=== PATIENT | male | born 1960 | race Caucasian/White ===

== ENCOUNTER 2025-04-30 22:12 | Observation (INO) ==
[2025-04-30 22:47] LABS: HCT - HEMATOCRIT 41.1 % (42.0-52.0); HGB - HEMOGLOBIN 13.5 g/dL (14.0-18.0); MEAN PLATELET VOLUME 9.2 fL (7.4-11.4); NRBC ABSOLUTE COUNT (AUTO) 0.00 x10^3/uL; NUCLEATED RED BLOOD CELLS AUTO 0.0 /100WBC; PLT - PLATELET COUNT 290 10^3/uL (130-450); RED CELL DISTRIBUTION WIDTH 13.2 % (12.0-15.0)
--- NOTE | 2025-04-30 22:47 | XRAY Report ---
PROCEDURE: XR Chest 1V INDICATIONS: Chest Pain TECHNIQUE: One view of the chest was acquired. COMPARISON: None. FINDINGS: Surgical changes and devices: None. Lungs and pleura: No pleural effusions or pneumothorax. No consolidation. Mediastinum: Mediastinal contours appear normal. Heart size is normal. Bones and chest wall: No suspicious bony lesions. Overlying soft tissues appear unremarkable. IMPRESSION: No acute cardiopulmonary process. Reviewed by: Montez Riojas MD on 04/30/2025 10:43 PM [facility] Approved by: Montez Riojas MD on 04/30/2025 10:43 PM PST Station ID: [id number]
[2025-04-30] MEDS: LORazepam 2 MG/ML VIAL IVP STA (22:58)
--- NOTE | 2025-04-30 23:01 | ED Physician Documentation ---
History of Present Illness Stated complaint Stated Complaint: CHEST DISCOMFORT Chief complaint Chief Complaint: General History obtained from History obtained from: Patient and Family History of Present Illness Pain level max: 4 Pain level now: 0 Additonal information Additional information: Patient is a 65-year-old male who presents to the emergency department stating he has had increasing anxiety over the past several weeks. History of same. Does not take any medications for it. History of hypertension. States that he had epigastric/chest pain about an hour prior to arrival that he relates to "gas". States resolved with belching. No change with walking. No fevers or chills. No cough or congestion. Denies any cardiac history. No history of stents or bypasses. Does not smoke. Does drink 1-2 beers nightly. Review of Systems Constitutional Denies: Fever or Chills Respiratory Denies: Cough Gastrointestinal Denies: Nausea or Vomiting Integumentary/Breast Denies: Rash Neurological Denies: Headache or General weakness Meds/Allgy Allergies Allergies Allergy/AdvReac Type Severity Reaction Status Date / Time No Known Drug Allergies Allergy Verified 04/30/25 22:18 [facility] Social History Social History Do you feel safe in your home environment?: Yes History of physical, verbal, emotional, or financial abuse?: No Exam Exam Vital Signs: Vital Signs x48h Temp Pulse Resp BP Pulse Ox 04/30/25 22:22 102 H 20 98 04/30/25 22:18 36.9 C 94 20 206/110 H 98 Constitutional normal general appearance and no apparent distress Eyes PERRL Neck/C-Spine trachea midline Chest inspection of chest normal and palpation of chest normal Respiratory breath sounds equal bilaterally, normal respiratory effort and clear to auscultation bilaterally Cardiovascular normal heart rate noted and regular rhythm noted Gastrointestinal abdomen soft to palpation, nontender to palpation and nondistended Psychiatry mental status grossly normal and oriented x3 Skin skin color normal Results Vitals Vitals: Vital Signs - 24 hr 04/30/25 22:18 04/30/25 22:22 04/30/25 22:24 Temperature 36.9 C Temperature Source Temporal Artery Scan Pulse Rate 94 102 H Respiratory Rate 20 20 Blood Pressure 206/110 H O2 Saturation 98 98 Oxygen Delivery Method Room Air O2 Source Room air Room air Pain Intensity 2 0 Oxygen O2 Source Room air EKG (time done) 2230: EKG releavant findings:: EKG personally interpreted by author of this note. Relevant findings are: Rate: Other (94bpm, sinus rhythm, normal NH interval, narrow QRS, LVH, no STEMI.) Labs Labs: Laboratory Tests 04/30/25 22:42 WBC 9.9 RBC 4.79 Hgb 13.5 L Hct 41.1 L MCV 85.8 MCH 28.2 MCHC 32.8 RDW 13.2 Plt Count 290 MPV 9.2 Neut # (Auto) 6.5 Lymph # (Auto) 2.2 [place] # (Auto) 1.0 Eos # (Auto) 0.1 Baso # (Auto) 0.0 Absolute Nucleated RBC 0.00 Nucleated RBC % 0.0 PD Medical Decision Making ED course Complexity details: reviewed results, re-evaluated patient, considered differential and d/w patient ED course: 65-year-old male with increasing anxiety, atypical chest pain, nonradiating, relieved with belching. No cardiac history. History of hypertension. Given Ativan for anxiety. Awaiting laboratory studies, chest x-ray. Suspect he will need at least 2 troponins. Patient will be signed out to Dr. Kirkland for repeat evaluation after medication and laboratory testing. This document was made in part using voice recognition software. While efforts are made to proofread this document, sound alike and grammatical errors may occur. Discharge Plan Discharge Print Language: French Stand Alone Forms: PCP List
--- NOTE | 2025-04-30 23:05 | ED Physician Documentation ---
ED Addendum Addendum Addendum: Patient was handed off to me at 2300 hrs. on 04-30-[address] Anders Jennings. Patient had an episode of vague left-sided chest discomfort after eating earlier tonight, and was recommended to come into the ER for evaluation by . He does have a history of significant hypertension, and known stable intra- abdominal aneurysm. [place] to [facility] about 4 days ago. He denies previous history of CAD or heart attack. Initial workup completed by Dr. Jennings so far unremarkable, his initial troponin was 18 on the high side of normal. Currently asymptomatic. Patient remained stable in the ER as he awaited second troponin. Second troponin did come back elevated at 24.2 which represented a rise of about 6.1 units on a high-sensitivity scale. I discussed these with the patient at length, and given his heart score roughly 4-5, elected to keep him here for a third troponin. Patient's third troponin came back elevated at 30.8. Throughout his time in the ER time he has been asymptomatic, with no chest pain or nausea. Feels well. We repeated an EKG, which appears similar to previous, with mild ST segment elevation in V1, stigmata of significant hypertension, as well as a few PVCs. I discussed his presentation with hospitalist here at [facility]. I recommended admission for observation and telemetry monitoring, likely echocardiogram tomorrow and establishment of care with cardiology for close follow-up as indicated. Patient was agreeable with this plan. Discharge Plan Discharge Patient Disposition: 68 [facility] DC/Xfer Condition: Stable Clinical Impression: Chest pain, Elevated troponin Interventions: ED Admission Assessment Last Done: 05/01/25 04:49 Vitals documented within 30 minutes of discharge?: Yes
[2025-04-30 23:06] LABS: ALT ALANINE AMINOTRANSFERASE 14.0 IU/L (10-60); AST ASPARTATE AMINOTRANSFERASE 15.0 IU/L (10-42); BUN - BLOOD UREA NITROGEN 15.0 mg/dL (6-20); CARBON DIOXIDE - CO2 28.0 mmol/L (21-32); CREATININE 1.0 mg/dL (0.6-1.3); GFR - MDRD 75.0 (>89)
[2025-04-30 23:09] LABS: TROPONIN I HIGH SENSITIVITY 18.1 ng/L (2.3-19.7)
[2025-05-01] MEDS: ASPIRIN CHEW 81 MG TABLET PO STA (04:40)
[2025-05-01] MEDS ORDERED: ONDANSETRON 4 MG/2 ML VIAL IVP PRN (04:46)
[2025-05-01] MEDS ORDERED: ACETAMINOPHEN 325 MG TABLET PO PRN (04:46)
[2025-05-01] MEDS ORDERED: SODIUM CHLORIDE FLUSH 0.9% 10 ML SYRINGE IVP PRN (04:46)
[2025-05-01] MEDS ORDERED: HYDROcod/ACETAM 5/325 MG TABLET PO PRN (04:46)
--- NOTE | 2025-05-01 05:00 | HISTORY & PHYSICAL EXAMINATION ---
Chief Complaint Chief Complaint Chief Complaint: chest pain History of Present Illness History Obtained From Exam Limitations: telemedicine History of Present Illness HPI Comment/Other: 65yoM with a history of hypertension, Gerd, anxiety presented to the ED with left sided chest pain. He describe it more of a discomfort and felt like gas. pain was located in the upper portion of his chest and non-radiating. pain is non-exertional. He reports that he suspected this to be secondary to acid reflux, but since it did not improve he came to the ed for evaluation. he also explained he was feeling very anxious. he has had gerd like symptoms in the past, and has undergone evaluation that was negative for ulcers. he stopped his ppi a few years ago after his symptoms resolved with a change in his diet. he reported that he has had recurrence of gerd since taking antibiotic for a dental procedure a year ago. He also explained that he has seen a scow hand in the past. He reported having an echo, denies ever having a heart cath, and uncertain about a stress test. he recently relocated from out of [facility]. past medical records not available at this time. Upon arrival patient was hypertensive with SBP >200. Troponin was uptrending 18 to 30. EKG on presentation demonstrated PVC, nonspecific ekg changes (anterior lead V1, had borderline ST changes). chest pain resolved with improvement of bloodpressure and management of anxiety with ativan. repeat ekg, showed resolution of pvc and stable changes in V1. This was discussed with the ED physician, who also spoke with the previous provider. It was expected that the ekg chagnes and troponin leak were secondary to the patients hypertension and less likely acute NH. Therefore i was asked to admit for monitoring, follow up troponin and echo. This visit was performed using telehealth tools, including phone and live-video. patient provided verbal consent to complete this telemedicine encounter. During the time my interview and evaluation, the patient was located at [facility] in the [facility], I was located in [place]. Meds/Allgy Home Medications Ambulatory Orders Medication Instructions Recorded Confirmed hydrochlorothiazide 25 mg tablet mg 05/01/25 losartan 100 mg tablet mg 05/01/25 rosuvastatin 10 mg tablet mg 05/01/25 Allergies Allergies Allergy/AdvReac Type Severity Reaction Status Date / Time No Known Drug Allergies Allergy Verified 05/01/25 00:06 [facility] Active Problems All Active Problems (Updated 05/01/25 @ 04:55 by Nayla Felix MD) Hypertension (Chronic) Elevated troponin (Acute) Chest pain (Acute) Social History Social History Smoking Status: Unknown if ever smoked Do you feel safe in your home environment?: Yes History of physical, verbal, emotional, or financial abuse?: No Review of Systems Status of ROS: 10 or more systems reviewed and unremarkable except as noted in history and below Exam Exam Vital Signs: Vital Signs x48h Temp Pulse Resp BP Pulse Ox 05/01/25 04:09 88 16 180/98 H 99 05/01/25 03:00 79 18 136/82 H 98 05/01/25 00:22 80 16 140/79 H 96 04/30/25 22:22 102 H 20 98 04/30/25 22:18 36.9 C 94 20 206/110 H 98 Examination as recorded is based on patient and staff reported information as well as peripheral observation. Constitutional normal general appearance and no apparent distress Chest inspection of chest normal Respiratory breath sounds equal bilaterally Cardiovascular normal heart rate noted and regular rhythm noted Extremities normal to inspection Psychiatry mental status grossly normal and oriented x3 Conclusion/Plan Problem List (1) Elevated troponin: Plan: suspected type II demand in the setting of hypertension, elevated heart score and borderline changes on EKG will proceed with ACS evaluation -ekg reviewed ST changes in the anterior lead, noted to be borderline (ACS vs LVH), no h/o CAD -will trend troponin, repeat ekg, proceed with ECHO to evaluate ventricular structure and function -monitor on telemetry -lipid panel pending -aspirin and statin initiated -if above workup consistent with ACS, further inpatient cardiac workup and cardiolgoy consultation recommended (2) Hypertension: Plan: home medications reviewed -will resume hctz 25mg -monitor on telmetry Plan Patient will be admitted to the hospitalist service under outpatient-observation status. less than 2 midnights expected for management. Lab Results Lab results reviewed: Yes 04/30/25 22:42 04/30/25 22:42 Diagnostic Imaging Results Diagnostic Imaging Results: positive Final report reviewed EKG Results EKG Interpreted Independently: Yes Core Measures Anticipated LOS I expect patient to be DC'd or transferred within 96 hours.: Yes DVT/VTE - Prophylaxis VTE/DVT Device ordered at admit?: Yes
[2025-05-01 05:48] LABS: BUN - BLOOD UREA NITROGEN 13 mg/dL (6-20); CARBON DIOXIDE - CO2 26 mmol/L (21-32); CHOL/HDL RATIO 3.1 (<5.0); CREATININE 0.9 mg/dL (0.6-1.3); GFR - MDRD 85 (>89); LDL/HDL RATIO 1.7 (<3.6); VLDL CHOLESTEROL 18 mg/dL
--- NOTE | 2025-05-01 08:00 | PROVIDER PROGRESS NOTE ---
Subjective Prog Note Date Prog Note Date: 05/01/25 Prog Note Time: 07:59 Subjective Subjective: Vital signs are stable. Remains hypertensive. Resuming his home losartan as well as HCTZ today. Continues to be quite anxious. Received IV Ativan last night. Nothing since then. On high intensity statin. LDL 82. Continue trending trops. Not yet peaked. Last 30.8. If his tropes downtrend, can continue outpatient workup and discharge today. Current Medications Current Medications Current Medications: Current Medications Generic Name Dose Route Start Last Admin Trade Name Freq PRN Reason Stop Dose Admin Acetaminophen 650 mg 05/01/25 04:46 Acetaminophen 325 Mg Tablet PO Q4HR PRN Pain 1 to 4, or Fever Hydrocodone Bitart/Acetaminophen 1 tab 05/01/25 04:46 Hydrocod/Acetam 5/325 Mg Tablet PO Q4HR PRN Pain 5 to 7 Aspirin 325 mg 05/01/25 09:00 Aspirin Ec 325 Mg Tablet PO DAILY [facility] Atorvastatin Calcium 80 mg 05/01/25 09:00 Atorvastatin 40 Mg Tablet PO DAILY [facility] Heparin Sodium (Porcine) 5,000 unit 05/01/25 09:00 Heparin 5,000 Unit/Ml Vial SUBQ BID SOURAV Hydrochlorothiazide 25 mg 05/01/25 07:00 05/01/25 06:54 Hydrochlorothiazide 25 Mg Tablet PO 25 mg 0700 [facility] Administration Losartan Potassium 100 mg 05/01/25 09:00 Losartan 50 Mg Tablet PO DAILY [facility] Ondansetron HCl 4 mg 05/01/25 04:46 Ondansetron 4 Mg/2 Ml Vial IVP Q6HR PRN Nausea / Vomiting Sodium Chloride 10 ml 05/01/25 04:46 Sodium Chloride Flush 0.9% 10 Ml Syringe IVP PRN PRN NEEDED PER PROVIDER ORDERS Sodium Chloride 10 ml 05/01/25 09:00 Sodium Chloride Flush 0.9% 10 Ml Syringe IVP 0100,0900,1700 [facility] Objective Vital Signs/Intake & Output Vital Signs: Vital Signs x48h Temp Pulse Pulse Resp BP BP Pulse Ox 05/01/25 06:40 174/98 H 05/01/25 04:51 36.6 C 84 16 178/95 H 98 05/01/25 04:49 96 16 166/104 H 98 05/01/25 04:09 88 16 180/98 H 99 05/01/25 03:00 79 18 136/82 H 98 05/01/25 00:22 80 16 140/79 H 96 Intake & Output: Intake & Output 04/28/25 04/29/25 04/30/25 05/01/25 23:59 23:59 23:59 23:59 Intake Total 200 / 200 Balance 200 / 200 Weight (kg) 77.111 kg 82 kg Lab Results 04/30/25 22:42 05/01/25 05:20 Other Labs: Lab Results x24hrs 05/01/25 05/01/25 05/01/25 Range/Units 05:20 03:03 01:03 WBC (4.8-10.8) x10^3/uL RBC (4.70-6.10) 10^6/uL Hgb (14.0-18.0) g/dL Hct (42.0-52.0) % MCV (80.0-94.0) fL MCH (27.0-31.0) pg MCHC (32.0-36.0) g/dL RDW (12.0-15.0) % Plt Count (130-450) 10^3/uL MPV (7.4-11.4) fL Neut # (Auto) (1.5-6.6) 10^3/uL Lymph # (Auto) (1.5-3.5) 10^3/uL [place] # (Auto) (0.0-1.0) 10^3/uL Eos # (Auto) (0.0-0.7) 10^3/uL Baso # (Auto) (0.0-0.1) 10^3/uL Absolute Nucleated RBC x10^3/uL Nucleated RBC % /100WBC Sodium 133 L (135-145) mmol/L Potassium 3.9 (3.5-4.5) mmol/L Chloride 99 L (101-111) mmol/L Carbon Dioxide 26 (21-32) mmol/L Anion Gap 8.0 (6-13) BUN 13 (6-20) mg/dL Creatinine 0.9 (0.6-1.3) mg/dL Estimated GFR (MDRD) 85 L (>89) Glucose 118 H (74-104) mg/dL Calcium 9.7 (8.5-10.3) mg/dL Total Bilirubin (0.2-1.0) mg/dL AST (10-42) IU/L ALT (10-60) IU/L Alkaline Phosphatase (42-121) IU/L Troponin I High Sens 30.8 H* 24.2 H* (2.3-19.7) ng/L Total Protein (6.4-8.9) g/dL Albumin (3.2-5.5) g/dL Globulin (2.1-4.2) g/dL Albumin/Globulin Ratio (1.0-2.2) Triglycerides 92 mg/dL Cholesterol 148 ( - 200) mg/dL LDL Cholesterol, Calc 82 ( - 129) mg/dL VLDL Cholesterol 18 mg/dL HDL Cholesterol 48 L (60 - ) mg/dL LDL/HDL Ratio 1.7 (<3.6) Cholesterol/HDL Ratio 3.1 (<5.0) Lipase (11-82) U/L 04/30/25 Range/Units 22:42 WBC 9.9 (4.8-10.8) x10^3/uL RBC 4.79 (4.70-6.10) 10^6/uL Hgb 13.5 L (14.0-18.0) g/dL Hct 41.1 L (42.0-52.0) % MCV 85.8 (80.0-94.0) fL MCH 28.2 (27.0-31.0) pg MCHC 32.8 (32.0-36.0) g/dL RDW 13.2 (12.0-15.0) % Plt Count 290 (130-450) 10^3/uL MPV 9.2 (7.4-11.4) fL Neut # (Auto) 6.5 (1.5-6.6) 10^3/uL Lymph # (Auto) 2.2 (1.5-3.5) 10^3/uL [place] # (Auto) 1.0 (0.0-1.0) 10^3/uL Eos # (Auto) 0.1 (0.0-0.7) 10^3/uL Baso # (Auto) 0.0 (0.0-0.1) 10^3/uL Absolute Nucleated RBC 0.00 x10^3/uL Nucleated RBC % 0.0 /100WBC Sodium 135 (135-145) mmol/L Potassium 3.8 (3.5-4.5) mmol/L Chloride 97 L (101-111) mmol/L Carbon Dioxide 28 (21-32) mmol/L Anion Gap 10.0 (6-13) BUN 15 (6-20) mg/dL Creatinine 1.0 (0.6-1.3) mg/dL Estimated GFR (MDRD) 75 L (>89) Glucose 136 H (74-104) mg/dL Calcium 10.2 (8.5-10.3) mg/dL Total Bilirubin 0.6 (0.2-1.0) mg/dL AST 15 (10-42) IU/L ALT 14 (10-60) IU/L Alkaline Phosphatase 42 (42-121) IU/L Troponin I High Sens 18.1 (2.3-19.7) ng/L Total Protein 7.7 (6.4-8.9) g/dL Albumin 5.0 (3.2-5.5) g/dL Globulin 2.7 (2.1-4.2) g/dL Albumin/Globulin Ratio 1.9 (1.0-2.2) Triglycerides mg/dL Cholesterol ( - 200) mg/dL LDL Cholesterol, Calc ( - 129) mg/dL VLDL Cholesterol mg/dL HDL Cholesterol (60 - ) mg/dL LDL/HDL Ratio (<3.6) Cholesterol/HDL Ratio (<5.0) Lipase 18 (11-82) U/L Assessment/Plan Problem List (1) Elevated troponin: (2) Hypertension:
[2025-05-01] MEDS: LOSARTAN 50 MG TABLET PO SCH (08:20)
[2025-05-01] MEDS: SODIUM CHLORIDE FLUSH 0.9% 10 ML SYRINGE IVP SCH (08:20)
[2025-05-01] MEDS: HEPARIN 5,000 UNIT/ML VIAL SUBQ SCH (08:21)
[2025-05-01] MEDS: ATORVASTATIN 40 MG TABLET PO SCH (08:22)
[2025-05-01] MEDS: ASPIRIN EC 325 MG TABLET PO SCH (08:22)
[2025-05-01] MEDS: ESCITALOPRAM 10 MG TABLET PO SCH (09:58)
[2025-05-01] MEDS: ACETAMINOPHEN 500 MG TABLET PO SCH (09:59)
--- NOTE | 2025-05-01 13:49 | Discharge Summary ---
Discharge Summary Admit Date: 05/01/25 Discharge Date: 05/01/25 Discharging Provider: Ike Cullen Primary Care Provider: Zach Caputo Code Status: Attempt Resuscitation Discharge Facility Name: Home DIAGNOSES Discharge Diagnoses with Status of Each Condition: Elevated troponin, mildly elevated, stable. No longer having any chest pain or discomfort. His initial symptoms were clearly anginal. They have resolved since the chargemaster specialist hours. High-sensitivity troponin remains elevated at 31, not downtrending but not rising. Anxiety, improved: New rx is hospitalization on Lexapro with as needed Vistaril. Both these are helping. He required a dose of IV Ativan on arrival. Hypertension, improved: He is on his home antihypertensives, and his SBP now in the 130s. Down from 200s on arrival. Sending with some BP logs to bring to his next PCP appt. HPI History of Present Illness: Per Dr. Felix admission: 65yoM with a history of hypertension, Gerd, anxiety presented to the ED with left sided chest pain. He describe it more of a discomfort and felt like gas. pain was located in the upper portion of his chest and non-radiating. pain is non-exertional. He reports that he suspected this to be secondary to acid reflux, but since it did not improve he came to the ed for evaluation. he also explained he was feeling very anxious. he has had gerd like symptoms in the past, and has undergone evaluation that was negative for ulcers. he stopped his ppi a few years ago after his symptoms resolved with a change in his diet. he reported that he has had recurrence of gerd since taking antibiotic for a dental procedure a year ago. He also explained that he has seen a systems security consultant in the past. He reported having an echo, denies ever having a heart cath, and uncertain about a stress test. [place]. past medical records not available at this time. Upon arrival patient was hypertensive with SBP >200. Troponin was uptrending 18 to 30. EKG on presentation demonstrated PVC, nonspecific ekg changes (anterior lead V1, had borderline ST changes). chest pain resolved with improvement of bloodpressure and management of anxiety with ativan. repeat ekg, showed resolution of pvc and stable changes in V1. This was discussed with the ED physician, who also spoke with the previous provider. It was expected that the ekg chagnes and troponin leak were secondary to the patients hypertension and less likely acute UT. Therefore i was asked to admit for monitoring, follow up troponin and echo. This visit was performed using telehealth tools, including phone and live-video. patient provided verbal consent to complete this telemedicine encounter. During the time my interview and evaluation, the patient was located at [facility] in the [facility], I was located in [place]. CONSULTS | PROCEDURES Consultations: None Procedures: EKG, CXR, Telemetry HOSPITAL COURSE Hospital Course: Patient was admitted with severe hypertension in the ED as well as associated anxiety. His troponin was elevated on admission at 25. It continued to increase to 31. It did not continue to elevate on repeat, but never normalized. His symptoms did not continue. He had some paraesophageal pain which was atypical for angina and occurred at rest on initial presentation. This had resolved by the time I saw him on the morning of discharge. He did not have any further pain throughout his day. His EKG did not show any diagnostic ST elevations, though was not normal still. He has a history of following previously with cardiology, mostly in the setting of his GERD and concern for anginal equivalents from that. He had a stress test with cardiology in [place] within the last couple of years. He was also being surveilled with TTE's annually there for 2 years unclear reasons, last done in 2022 with instructions to return in 2025 for ongoing surveillance. Consideration was made to transfer to specialty cardiology center, but given he was asymptomatic and his flat troponins, this was thought to be safe to be managed outpatient. Consideration was made that his troponins elevated initially because of hypertension and demand ischemia, but that does not clearly explain why his troponins did not improve despite his blood pressure improving after resuming his home antihypertensives. He was started on aspirin and statin. He needs to follow-up with cardiology in the community, and stated good understanding of this. For his hypertension, he was continued on his losartan and HCTZ, these are home meds for him. His systolics came down from the 200s to the 130s. I have instructed him to log his blood pressures over the coming week and follow-up with his new primary care doctor at his established visit on 05/07. For his anxiety, he has a longstanding history of anxiety. He has previously been on Zoloft, he says it felt made him feel like a "zombie". He had good response to benzodiazepines early in the ED this hospitalization. Trialed Vistaril on day of discharge, and he was able to tolerate that reasonably well. He says that it was effective at a 25 mg dose. I have also started him on Lexapro 5 mg, he can go up in dose weekly if tolerating. Would likely not increase above 10 mg. Finally, he does have a history of GERD. This apparently got worse after some antibiotics a couple of years ago. He had a remote EGD in [place]. This was apparently unremarkable. He has been on as needed PPI, but says that it does not work for his recent symptoms. He has apparently a known dx of ARMAND but has yet to start on CPAP. Patient was seen and evaluated on day of discharge. He was monitored on telemetry during this hospitalization. Remained in sinus. TTE was ordered, but unable to be completed due to staffing. Given his clinical stability, and shared decision making, he opted to discharge home with return precautions. ALLERGIES Allergies Allergy/AdvReac Type Severity Reaction Status Date / Time No Known Drug Allergies Allergy Verified 05/01/25 00:06 MEDICATIONS Ambulatory Orders Medication Instructions Recorded Confirmed acetaminophen 500 mg capsule 1,000 mg PO BID PRN pain 05/01/25 05/01/25 ascorbate calcium (vitamin C) 1 tab PO DAILY 05/01/25 05/01/25 aspirin 81 mg capsule 81 mg PO DAILY #30 caps 04/22 escitalopram oxalate 5 mg tablet 5 mg PO DAILY #30 tab s 05/01/25 hydrochlorothiazide 25 mg tablet 25 mg PO DAILY 05/01/25 hydroxyzine pamoate 25 mg capsule 25 mg PO Q6H PRN Anx iety #60 caps 05/01/25 losartan 100 mg tablet 100 mg PO DAILY 05/01/2503/16 melatonin 3 mg tablet 1.5 mg PO HS sleep 05/01/25 05/01/25 prasterone (DHEA) 50 mg capsule 50 mg PO DAILY 5 05/01/25 (DHEA) rosuvastatin 20 mg tablet 20 mg PO DAILY #30 tabs 04/22 PHYSICAL EXAM AT DISCHARGE Vital Signs: Vital Signs x48h Temp Pulse Resp BP Pulse Ox 05/01/25 14:00 36.6 C 81 16 156/98 H 98 05/01/25 12:57 36.7 C 76 18 139/95 H 97 05/01/25 08:26 36.6 C 90 18 157/99 H 100 LABS 04/30/25 22:42 05/01/25 05:20 FOLLOW UP Follow Up: Has an appointment with Zach Caputo on 05/07 to establish with PCP Needs referral to cardiology and consider referral to GI for upper endoscopy for his GERD TIME SPENT Time Spent in Discharge (Minutes): 51 Discharge Plan Discharge Patient Disposition: 01 Home, Self Care Condition: Stable Medically Cleared Date:: 05/01/25 Prescriptions: New rosuvastatin 20 mg tablet 20 mg PO DAILY Qty: 30 0RF aspirin 81 mg capsule 81 mg PO DAILY Qty: 30 0RF escitalopram oxalate 5 mg tablet 5 mg PO DAILY Qty: 30 0RF hydroxyzine pamoate 25 mg Capsule 25 mg PO Q6H PRN (Reason: Anxiety) Qty: 60 0RF Continued hydrochlorothiazide 25 mg tablet 25 mg PO DAILY Patient Comments: TAKE ONE TABLET BY MOUTH ONE TIME DAILY losartan 100 mg tablet 100 mg PO DAILY Discontinued rosuvastatin 10 mg tablet 10 mg PO HS No Action acetaminophen 500 mg capsule 1,000 mg PO BID PRN (Reason: pain) DHEA 50 mg capsule 50 mg PO DAILY ascorbate calcium (vitamin C) 1 tab PO DAILY melatonin 3 mg tablet 1.5 mg PO HS Diet: Regular Interventions: Discharge Last Done: 05/01/25 13:58 Discharge Checklist - Nursing Last Done: 05/01/25 14:20 Discharge Vital Signs (30 Minutes) Last Done: 05/01/25 14:00 Health Concerns: You were admitted because of high blood pressure, elevated heart markers (troponin), and anxiety. The elevated troponin indicates stress on your heart muscle. Your medical team performed tests to evaluate your heart and started new medications to protect your heart and manage your symptoms. Your New Medications Please take these medications exactly as prescribed: * Rosuvastatin (statin) 20 mg - Take one tablet by mouth once daily. This medicine lowers cholesterol to protect your heart and blood vessels. * Possible side effects: Muscle aches, upset stomach * Aspirin 81 mg - Take one tablet by mouth once daily. This medication prevents blood clots and protects your heart. Important: Take with food if it bothers your stomach * Escitalopram (Lexapro) - Take as prescribed. This medication treats anxiety and depression. * Possible side effects: Nausea, drowsiness, changes in sleep * Important: May take 2-4 weeks to feel full effect; do not stop suddenly * Hydroxyzine (Vistaril) - Take as prescribed for anxiety. This medication helps with anxiety symptoms * Possible side effects: Drowsiness, dry mouth * Important: Do not drive or operate machinery if you feel drowsy Continue all your other medications unless your doctor told you to stop them. If you have trouble affording your medications, ask your doctor about assistance programs. Monitoring Your Blood Pressure at Home Check your blood pressure at home regularly using a validated monitor (visit validatebp.com for a list of approved devices). Keep a log of your readings and bring it to your follow-up appointments. This helps your doctor adjust your medications if needed. Warning Signs - When to Call 911 Call 911 immediately if you experience: * Chest pain, pressure, or tightness * Shortness of breath that is severe or getting worse * Pain spreading to your arm, jaw, neck, or back * Severe dizziness or fainting * Fast or irregular heartbeat with chest discomfort When to Call Your Doctor * Mild chest discomfort or unusual fatigue * Blood pressure readings consistently above your target * Side effects from your medications * Worsening anxiety or depression symptoms * Any bleeding or unusual bruising Lifestyle Changes to Protect Your Heart Making healthy lifestyle changes is important for your recovery: - Physical activity: Start with light walking and gradually increase as tolerated. Ask your doctor when you can return to your normal exercise routine. - Diet: Eat a heart-healthy diet low in salt, saturated fat, and added sugars - Smoking: If you smoke, talk to your doctor about quitting programs - Stress management: Practice relaxation techniques and get adequate sleep - Limit alcohol: Discuss safe alcohol limits with your doctor Required Follow-Up Appointments You must schedule and attend these appointments: 1. Cardiology appointment - Schedule within 7-14 days after discharge - Your systems security consultant will review your heart tests and adjust medications if needed - Bring your blood pressure log and medication list 2. Primary care appointment - Attend within a week of discharge - Your primary care doctor will monitor your blood pressure, review all medications, and coordinate your ongoing care - Discuss any concerns about anxiety or depression - Also recommend that you discuss with them about your heartburn symptoms and your sleep apnea. Additional Important Information - Keep a current list of all your medications with you at all times - Make sure your family knows your medications and warning signs - Consider having family members learn CPR - Get your annual flu vaccine (ask your doctor when) - If you have questions about your care plan, write them down and bring them to your appointments Prescription Refills You should have received prescriptions for all new medications. Contact your pharmacy or doctor's office if you need refills. Do not let your medications run out. Print Language: Slovak Patient Instructions: Cardiac Biomarkers (Blood), Hydroxyzine Follow-up Care: Zach Caputo FNP [Provider Admit Priv/Credential, Family Practice] Vitals documented within 30 minutes of discharge?: Yes
--- NOTE | 2025-05-01 13:58 | PHARMACY PROGRESS NOTE ---
Best Possible Medication History Admit Date and Time: 05/01/25 0411 Home Medications Medication Instructions Recorded Confirmed Type acetaminophen 500 mg capsule 1,000 mg PO BID PRN pain 05/01/25 05/01/25 History ascorbate calcium (vitamin C) 1 tab PO DAILY 05/01/25 05/01/25 History aspirin 81 mg capsule 81 mg PO DAILY #30 caps 04/22 Rx escitalopram oxalate 5 mg tablet 5 mg PO DAILY #30 tab s 05/01/25 Rx hydrochlorothiazide 25 mg tablet 25 mg PO DAILY 05/01/25 History hydroxyzine pamoate 25 mg capsule 25 mg PO Q6H PRN Anx iety #60 caps 05/01/25 Rx losartan 100 mg tablet 100 mg PO DAILY 05/01/2503/16 History melatonin 3 mg tablet 1.5 mg PO HS sleep 05/01/25 05/01/25 History prasterone (DHEA) 50 mg capsule 50 mg PO DAILY 5 05/01/25 History (DHEA) rosuvastatin 20 mg tablet 20 mg PO DAILY #30 tabs 04/22 Rx Processed by: Pharmacy Medications reviewed in ED?: No Medication History completed: Yes Patient Interview: Completed (by pharmacy sales representativeAicha) Secondary Source(s): Insurance records [facility] Statement: As the person ultimately responsible for medication therapy, providers are able to order a medication from an existing home medication list in [facility] via the "Reconcile Routine" prior to Confirmation of that medication by customer support representative. Such practice is discouraged except when the physician, in their clinical judgment, deems that a medical need exists for a medication without regard to previous use.
[2025-05-01 14:20] VITALS: BP 156/98; TEMP 97.9; O2SAT 98
[2025-05-01] MEDS ORDERED: ATORVASTATIN 40 MG TABLET PO SCH ×2 (21:00)
== END 2025-05-01 14:21 | disposition home or self-care (01) ==
LOC: ED 22:12 → MS2 22:12 → SUATTDRO 05-01 04:11 → MS2 05-01 04:50
PROVIDERS: ADMIT Hospitalist; ATTEND Student in an Organized Health Care Education/Training Program